=== PATIENT | female | born 1985 | race Two or more races ===

== ENCOUNTER 2025-03-02 11:31 | Emergency (ER) | payer OTHER ==
[~2025-03-02] VITALS: Ht 157.5 cm; Wt 73.9 kg
[2025-03-02 12:31] VITALS: BP 119/66; TEMP 98.7; O2SAT 99
== END 2025-03-02 12:31 | disposition home or self-care (01) ==
LOC: ER 11:37
DX: R07.89 Other chest pain (principal); F41.9 Anxiety disorder, unspecified
CPT/HCPCS: 71045-TC